=== PATIENT | female | born 1965 | race Caucasian/White ===

== ENCOUNTER → 2016-10-20 | Outpatient (CLI) | payer OTHER ==
[~2016-10-20] MED LIST: EST.625T; HYDR-34 PO; HYDR1CAP2; PNT40TEC; TOPI50TA20
[2016-10-20 07:38] LABS: ALANINE AMINOTRANSFERASE 30 U/L (0-55); ALBUMIN 3.8 G/DL (3.2-4.5); ANION GAP 8 MMOL/L (5-14); ASPARTATE AMINO TRANSFERASE 18 U/L (5-34); BILIRUBIN,TOTAL 0.7 MG/DL (0.1-1.0); BLOOD UREA NITROGEN 13 MG/DL (7-18); BUN/CREATININE RATIO 15; CALCIUM 9.1 MG/DL (8.5-10.1); CARBON DIOXIDE 27 MMOL/L (21-32); CHLORIDE 107 MMOL/L (98-107); CHOLESTEROL 184 MG/DL (< 200); CREATININE SERUM 0.87 MG/DL (0.60-1.30); DIRECT LDL 93 MG/DL (1-129); GFR ESTIMATED > 60; GLUCOSE 99 MG/DL (70-105); POTASSIUM 3.7 MMOL/L (3.6-5.0); SODIUM 142 MMOL/L (135-145); TOTAL PROTEIN 6.1 G/DL (6.4-8.2); TRIGLYCERIDES 52 MG/DL (<150); VLDL CHOLESTEROL 10 MG/DL (5-40)
--- NOTE | 2016-10-21 15:09 | ECHOCARDIOGRAPHY REPORT ---
PROCEDURE PHYSICIAN: JIM MEYER DATE OF PROCEDURE: 10/20/2016 TWO DIMENSIONAL ECHOCARDIOGRAM REPORT PRIMARY PHYSICIAN: OTHER PHYSICIAN: REFERRING PHYSICIAN: Dr. Eric ORDERING PHYSICIAN: INDICATION FOR THE PROCEDURE: Palpitations, family history of heart disease. MEASUREMENTS DERIVED VALUES LV DIAMETER (LAX) NORMALS NORMALS Diastolic 3.8 (3.6-5.2) Eject. Fract. 60% (60%+/-6%) Systolic (2.3-3.9) Diastolic Vol. % Shortening (0.22-0.42) Systolic Vol. Aortic Root IVS THICKNESS Diastolic 0.8 (0.6-1.1) LVPW THICKNESS Diastolic 0.8 (0.6-1.1) LA DIAMETER Systolic 3.3 (2.1-3.7) FINDINGS: 1. Technical quality is good. 2. The left ventricle is normal in size with normal contractility. Systolic function appeared to be normal. Estimated ejection fraction 60%. 3. The left atrium is normal in size. No clot or thrombus were seen within the left atrium. 4. The right atrium and right ventricle are normal in size. No clot or thrombus were seen within the right side. 5. Mitral valve is normal in morphology with mild mitral regurgitation noted by color Doppler flow. No mitral valve prolapse. No mitral valve stenosis. 6. Aortic valve is trileaflet with normal opening and closing pattern. No significant aortic stenosis or regurgitation was seen. 7. Tricuspid valve is normal in morphology with mild tricuspid regurgitation noted by color Doppler flow. Doppler across tricuspid valve estimated pulmonary artery pressure of 20+ right atrial pressure. 8. Pulmonic valve is functioning normally. 9. No pericardial effusion. CONCLUSION: 1. Normal left ventricular size and systolic function. Estimated ejection fraction 60%. 2. Mild mitral and tricuspid regurgitation. 3. Estimated pulmonary artery pressure of 25 to 30 mmHg. Job ID: [id number] Dictated Date: 10/21/2016 14:29:02 [employer] Producer Date: 10/21/2016 15:04:45 / edmond
== END ==
LOC: CARD 07:07
PROVIDERS: ATTEND Physician Assistant
DX: R53.83 Other fatigue (principal); R00.2 Palpitations; Z83.3 Family history of diabetes mellitus; Z82.49 Family history of ischemic heart disease and other diseases of the circulatory system
CPT/HCPCS: 36415; 80053; 80061; 93306

== ENCOUNTER → 2016-10-21 | Outpatient (CLI) | payer OTHER | LOC: CARD 07:16 | PROVIDERS: ATTEND Physician Assistant | DX: R00.2 Palpitations (principal); R53.83 Other fatigue; Z83.3 Family history of diabetes mellitus; Z82.49 Family history of ischemic heart disease and other diseases of the circulatory system | CPT/HCPCS: 93017 ==

== ENCOUNTER → 2016-12-15 | Outpatient (CLI) | payer OTHER ==
--- NOTE | 2016-12-15 18:46 | Diagnostic Imaging Report ---
PROCEDURE: MR imaging of the brain without contrast. TECHNIQUE: Multiplanar, multisequence MR imaging of the brain was performed without contrast. INDICATION: Migraines. Double vision. History of retinal hemorrhage. COMPARISON: None. FINDINGS: There are moderate areas of scattered and confluent T2/FLAIR bright signal within the periventricular and subcortical deep white matter. There is no acute infarct on today's exam. There is no mass effect or midline shift. Ventricles and cortical sulci are age-appropriate. There is no evidence of intra-axial or extra-axial intracranial hemorrhage. No other extra-axial masses or fluid collections are seen. Midline craniocervical anatomy is maintained. Major expected intracranial flow voids are identified. No focal calvarial lesions are seen. Included portions of paranasal sinuses and mastoid air cells are clear. IMPRESSION: 1. Moderate abnormal scattered and confluent T2/FLAIR bright signal within the periventricular and subcortical deep white matter. Chronic small vessel ischemic changes are favored. Overall burden of disease is greater than expected given patient's age. Correlation for risk factors is recommended. Demyelinating process such as multiple sclerosis is not excluded, but felt to be less likely. If there is clinical concern for potential demyelinating process, correlation with CSF flow studies is recommended. 2. No evidence of acute infarct, mass, nor hemorrhage. Dictated by: Dictated on workstation # [id number]
== END ==
LOC: RAD 17:45
PROVIDERS: ATTEND Psychiatry & Neurology Neurology
DX: R94.02 Abnormal brain scan (principal); G43.709 Chronic migraine without aura, not intractable, without status migrainosus; H53.2 Diplopia
CPT/HCPCS: 70551

== ENCOUNTER → 2016-12-17 | Outpatient (CLI) | payer OTHER ==
[2016-12-17 16:17] LABS: PEP REPORT SEE PATH REPORT
[2016-12-17 16:19] LABS: BASOPHILS % (AUTO) 0 % (0-10); EOSINOPHILS # (AUTO) 0.1 10^3/uL (0.0-0.3); EOSINOPHILS % (AUTO) 1 % (0-10); LYMPHOCYTES % (AUTO) 24 % (12-44); MEAN CORPUSCULAR HEMOGLOBIN 29 PG (25-34); MEAN CORPUSCULAR HGB CONC 34 G/DL (32-36); MEAN CORPUSCULAR VOLUME 86 FL (80-99); MEAN PLATELET VOLUME 9.6 FL (7.4-10.4); MONOCYTES # (AUTO) 0.5 X 10^3 (0.0-1.0); MONOCYTES % (AUTO) 6 % (0-12); NEUTROPHILS # (AUTO) 5.6 X 10^3 (1.8-7.8); NEUTROPHILS % (AUTO) 68 % (42-75); PLATELET COUNT 286 10^3/uL (130-400); RED BLOOD COUNT 4.88 10^6/uL (4.35-5.85); RED CELL DISTRIBUTION WIDTH 12.7 % (10.0-14.5); WHITE BLOOD COUNT 8.2 10^3/uL (4.3-11.0)
[2016-12-17 16:36] LABS: ERYTHROCYTE SEDIMENTATION RATE 10 MM/HR (0-30)
[2016-12-19 06:16] LABS: LIGHT CHAIN KAPPA SERUM QUANT 13.76 mg/L (3.30-19.40); LIGHT CHAIN LAMBDA SERUM QUANT 11.52 mg/L (5.71-26.30)
== END ==
LOC: LAB 16:02
PROVIDERS: ATTEND Family Medicine
DX: H35.072 Retinal telangiectasis, left eye (principal); H43.813 Vitreous degeneration, bilateral; H25.13 Age-related nuclear cataract, bilateral; H34.8320 Tributary (branch) retinal vein occlusion, left eye, with macular edema
CPT/HCPCS: 36415; 83883; 84155; 84165; 85025; 85652; 86038; 86141

== ENCOUNTER → 2017-01-01 | Outpatient (CLI) | payer OTHER ==
--- NOTE | 2017-01-01 12:59 | Diagnostic Imaging Report ---
INDICATION: Pain of fifth digit. COMPARISON: None available. TECHNIQUE: 3 views of the left small finger. FINDINGS: There is no acute fracture or traumatic malalignment. Joint spaces are maintained. No radiopaque foreign body or discrete soft tissue swelling. IMPRESSION: 1. No acute fracture or traumatic malalignment of the left small finger. Dictated by: Dictated on workstation # [id number]
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
== END ==
LOC: RAD 11:56
PROVIDERS: ATTEND Nurse Practitioner Family
DX: M47.812 Spondylosis without myelopathy or radiculopathy, cervical region (principal); M51.37 Other intervertebral disc degeneration, lumbosacral region; S69.92XA Unspecified injury of left wrist, hand and finger(s), initial encounter; M54.6 Pain in thoracic spine; V49.9XXA Car occupant (driver) (passenger) injured in unspecified traffic accident, initial encounter; Y92.410 Unspecified street and highway as the place of occurrence of the external cause; Y99.8 Other external cause status
CPT/HCPCS: 72040; 72072; 72100; 73140

== ENCOUNTER 2017-02-04 01:12 | Emergency (ER) | payer OTHER ==
[~2017-02-04] VITALS: Ht 162.6 cm; Wt 68.5 kg
[2017-02-04] MEDS ORDERED: PROMETHAZINE INJ 25 MG/ML (PHENERGAN) AMP ONE (01:20)
[2017-02-04] MEDS ORDERED: KETOROLAC 30 MG/ML VIAL ONE (01:20)
[2017-02-04] MEDS ORDERED: NS IV 1000 ML 1,000 ML ONE (01:20)
[2017-02-04] MEDS ORDERED: diphenhydrAMINE 50 MG/ML INJ (BENADRYL) ONE (01:20)
[2017-02-04] MEDS ORDERED: diphenhydrAMINE 50 MG/ML INJ (BENADRYL) IV STA (01:22)
[2017-02-04] MEDS ORDERED: KETOROLAC 30 MG/ML VIAL IVP STA (01:22)
[2017-02-04] MEDS ORDERED: PROMETHAZINE INJ 25 MG/ML (PHENERGAN) AMP IVP STA (01:22)
[2017-02-04] MEDS ORDERED: NS IV 1000 ML 1,000 ML IV ONE (01:22)
--- NOTE | 2017-02-04 01:38 | ED Headache ---
General Chief Complaint: Head/Cervical Problems Stated Complaint: MIGRAINE Nursing Triage Note: pt to er with c/o migraine. she was seen at [facility] on wednesday for similar c/o. Nursing Sepsis Screen: No Definite Risk Source: patient Exam Limitations: no limitations History of Present Illness Time seen by provider: 01:15 Initial Comments Here with report of migraine headache. She's had a few in the last several days. She is on medicines and they are not currently helping. Headache is posterior. She does have photophobia and sensitivity to sound. Reports nausea. Migraine is typical for her. Denies fever or chills. Timing/Duration: 4-6 hours Severity/Quality: moderate, severe Location: occipital Prior Headaches/Recent Trauma: occasional headaches Modifying Factors: worse with exposure to light Associated Symptoms: No confusion, No fever/chills, nausea/vomiting, No sinus infection, No stiff neck, No vision changes Allergies and Home Medications Allergies Coded Allergies: venlafaxine (Unverified Allergy, Mild, 06/17/09) butorphanol (Verified Allergy, Unknown, 06/28/08) Home Medications Aspirin 81 Mg Tablet.dr, 81 MG PO DAILY, (Reported) Ergocalciferol (Vitamin D2) 50,000 Unit Capsule, #4 (Reported) Hydrocodone/Acetaminophen 1 Each Tablet, #30 (Reported) Tramadol HCl 50 Mg Tablet, #60 (Reported) Venlafaxine HCl 75 Mg Cap.er.24h, 75 MG PO DAILY, #30 (Reported) [octreotide injection] , (Reported) [vitamin b12] , (Reported) Constitutional: No chills, No fever Eyes: See HPI, Denies Decreased Acuity, Photophobia Respiratory: no symptoms reported Cardiovascular: no symptoms reported Gastrointestinal: see HPI, nausea, No vomiting Genitourinary: no symptoms reported Musculoskeletal: no symptoms reported All Other Systems Reviewed Negative Unless Noted: Yes Past Pebviiq-Ydhwpj-Cauqku Hx Patient Social History Alcohol Use: Occasionally Uses Recreational Drug Use: No Smoking Status: Never a Smoker Recent Foreign Travel: No Contact w/Someone Who Travel: No Recent Infectious Disease Expo: No Recent Hopitalizations: No Seasonal Allergies Seasonal Allergies: No Surgeries Surgeries: Appendectomy, Gallbladder, Hysterectomy Respiratory Hx Respiratory Disorders: No Cardiovascular Hx Cardiac Disorders: No Neurological Hx Neurological Disorders: Yes Neurological Disorders: Headaches /Migraines Reproductive System Hx Reproductive Disorders: No Sexually Transmitted Disease: No Genitourinary Hx Genitourinary Disorders: No Gastrointestinal Hx Gastrointestinal Disorders: Yes Musculoskeletal Hx Musculoskeletal Disorders: No Endocrine Hx Endocrine Disorders: No HEENT HX ENT Disorders: No Psychosocial Hx Psychiatric Problems: No Blood Transfusions Hx Blood Disorders: No Reviewed Nursing Assessment Reviewed/Agree w Nursing PMH: Yes Family Medical History Significant Family History: No Pertinent Family Hx Physical Exam Vital Signs Vital Sign - Last 12Hours 02/04/17 01:19 Temp 98.3 Pulse 86 Resp 16 B/P (MAP) 181/115 Capillary Refill : Less Than 3 Seconds General Appearance: WD/WN, mild distress (headache) HEENT: PERRL/EOMI, pharynx normal Neck: full range of motion, supple Cardiovascular: regular rate, rhythm, no murmur Respiratory: lungs clear, normal breath sounds Gastrointestinal: non tender, soft Back: normal inspection, no CVA tenderness, no vertebral tenderness Extremities: non-tender, normal inspection Psychiatric: alert, oriented x 3 Crainal Nerves: normal hearing, normal speech, PERRL Coordination/Gait: normal gait Motor/Sensory: no motor deficit Skin: normal color, warm/dry Progress/Results/Core Measures Results/Orders My Orders Orders - RUPERTO ELLIS MD Saline Lock/Iv-Start (02/04/17 01:22) Ns Iv 1000 Ml (Sodium Chloride 0.9%) (02/04/17 01:22) Promethazine Injection (Phenergan Injec (02/04/17 01:22) Diphenhydramine Injection (Benadryl Inje (02/04/17 01:22) Ketorolac Injection (Toradol Injection) (02/04/17 01:22) Diphenhydramine Injection (Benadryl Inje (02/04/17 01:20) Promethazine Injection (Phenergan Injec (02/04/17 01:20) Ketorolac Injection (Toradol Injection) (02/04/17 01:20) Ns Iv 1000 Ml (Sodium Chloride 0.9%) (02/04/17 01:20) Medications Given in ED Current Medications Medications Dose Ordered Sig/[place] Route Start Time Stop Time Status Last Admin Dose Admin Sodium Chloride 1,000 ml @ 0 mls/hr Q0M ONCE IV 02/04/17 01:22 02/04/17 01:24 DC 7/20/17 01:36 1,000 MLS/HR Vital Signs/I&O Vital Sign - Last 12Hours 02/04/17 01:19 Temp 98.3 Pulse 86 Resp 16 B/P (MAP) 181/115 Blood Pressure Mean: 137 Progress Note : Progress Note Seen and evaluated. IV, normal saline 1 L bolus, Toradol 30 mg IV, Benadryl 50 mg IV and Phenergan 25 mg IV ordered. Monitor patient. 0405: Patient is much better. Tolerating meds okay. Discharged home with return precautions. Patient verbalize understanding instructions and agreement with plan. Departure Impression Impression: Primary Impression: Migraine Qualified Codes: G43.C0 - Periodic headache syndromes in child or adult, not intractable Disposition: HOME, SELF-CARE Condition: Improved Departure-Patient Inst. Decision time for Depature: 04:06 Referrals: JEZ MOHAN DO (PCP/Family) Primary Care Physician Patient Instructions: Migraine Headache (DC) Add. Discharge Instructions: All discharge instructions reviewed with patient and/or family. Voiced understanding. Continue home medications as directed. Follow-up with her in one to 2 days for recheck. Return for worse pain, fever, vomiting, weakness, breathing problems or other concerns as needed. RUPERTO ELLIS MD Feb 04, 2017 01:38
[2017-02-04] MEDS ORDERED: HYDR-3812 (01:42)
[2017-02-04] MEDS ORDERED: OCTREOTIDE (01:42)
[2017-02-04] MEDS ORDERED: VENL75CA93 PO (01:42)
[2017-02-04] MEDS ORDERED: ASPI-586 PO (01:42)
[2017-02-04] MEDS ORDERED: TRAM50TA2 (01:42)
[2017-02-04] MEDS ORDERED: ERGO50006 (01:42)
[2017-02-04] MEDS ORDERED: vitamin b12 (01:42)
[2017-02-04 04:30] VITALS: BP 160/107
== END 2017-02-04 04:30 | disposition home or self-care (01) ==
LOC: EDUNIT# 01:12 → ER 01:13
DX: G43.909 Migraine, unspecified, not intractable, without status migrainosus (principal); Z90.49 Acquired absence of other specified parts of digestive tract; Z90.710 Acquired absence of both cervix and uterus; Z79.82 Long term (current) use of aspirin
CPT/HCPCS: 96361; 96374; 96375

== ENCOUNTER → 2017-02-17 | Outpatient (CLI) | payer OTHER ==
[~2017-02-17] MED LIST changes: +ASPI-586 PO; +ERGO50006; +HYDR-3812; +OCTREOTIDE; +TRAM50TA2; +VENL75CA93 PO; +vitamin b12
--- NOTE | 2017-02-17 17:58 | Diagnostic Imaging Report ---
PROCEDURE: MRI right joint lower extremity without contrast. TECHNIQUE: Multiplanar, multisequence non contrast-enhanced MRI of the right lower extremity was accomplished. INDICATION: Right knee pain. Patient felt a pop in the knee while running. FINDINGS: There is a small joint effusion. The extensor mechanism appears intact. The ACL and the PCL are both intact. There is a tear involving the apex of the medial meniscus in the posterior horn. The body and the anterior horns appear intact. There is no lateral meniscus tear. The lateral collateral ligament complex is intact. The MCL is intact. There is no popliteal cyst. The muscles around the knee demonstrate normal signal and bulk. There is mild cartilage thinning in the medial compartment. The cartilage in the patellofemoral and lateral compartments appears intact. There is mild edema anterior to the patella may relate to mild prepatellar bursitis. The bone marrow demonstrates normal signal with no contusion or other abnormality seen. IMPRESSION: There is a radial tear involving the apex of the posterior horn of the medial meniscus. Other findings as above. Dictated by: Dictated on workstation # [id number]
== END ==
LOC: RAD 11:38
PROVIDERS: ATTEND Family Medicine
DX: S83.241A Other tear of medial meniscus, current injury, right knee, initial encounter (principal); X58.XXXA Exposure to other specified factors, initial encounter; Y99.8 Other external cause status
CPT/HCPCS: 73721

== ENCOUNTER 2017-02-18 15:01 | Outpatient (RCR) | payer OTHER | END 2017-02-18 16:22 | disposition home or self-care (01) | PROVIDERS: ATTEND Physician Assistant | DX: M23.8X1 Other internal derangements of right knee (principal) ==

== ENCOUNTER 2017-03-30 13:03 | Outpatient (RCR) | payer OTHER | END 2017-04-13 09:46 | disposition home or self-care (01) | PROVIDERS: ATTEND Physician Assistant Medical | DX: M25.561 Pain in right knee (principal) ==

== ENCOUNTER → 2017-04-02 | Outpatient (CLI) | payer OTHER ==
[~2017-04-02] VITALS: Ht 162.6 cm; Wt 68.5 kg
[2017-04-02 12:00] VITALS: BP 174/94
[2017-04-02] MEDS: NS IV 1000 ML 1,000 ML IV SCH ×2 (12:00→13:59)
[2017-04-02 12:03] LABS: MEAN PLATELET VOLUME 9.3 FL (7.4-10.4); RED BLOOD COUNT 4.69 10^6/uL (4.35-5.85); RED CELL DISTRIBUTION WIDTH 12.6 % (10.0-14.5); WHITE BLOOD COUNT 8.8 10^3/uL (4.3-11.0)
[2017-04-02 12:20] LABS: ALANINE AMINOTRANSFERASE 30 U/L (0-55); ALBUMIN 4.2 GM/DL (3.2-4.5); ANION GAP 9 MMOL/L (5-14); ASPARTATE AMINO TRANSFERASE 22 U/L (5-34); BILIRUBIN,TOTAL 0.7 MG/DL (0.1-1.0); BLOOD UREA NITROGEN 7 MG/DL (7-18); BUN/CREATININE RATIO 10; CALCIUM 9.3 MG/DL (8.5-10.1); CARBON DIOXIDE 27 MMOL/L (21-32); CHLORIDE 105 MMOL/L (98-107); CREATININE SERUM 0.73 MG/DL (0.60-1.30); GFR ESTIMATED > 60; GLUCOSE 106 MG/DL (70-105); POTASSIUM 3.6 MMOL/L (3.6-5.0); SODIUM 141 MMOL/L (135-145); TOTAL PROTEIN 6.8 GM/DL (6.4-8.2)
[2017-04-02 12:41] LABS: THYROID STIMULATING HORMONE 1.24 UIU/ML (0.35-4.94)
[2017-04-02 15:45] VITALS: BP 174/94
== END ==
LOC: CARD 11:21
PROVIDERS: ATTEND Nurse Practitioner Family
DX: I10 Essential (primary) hypertension (principal); R53.83 Other fatigue; R11.0 Nausea; R00.2 Palpitations
CPT/HCPCS: 36415; 80053; 84439; 84443; 85027; 93005

== ENCOUNTER → 2017-04-19 | Outpatient (CLI) | payer OTHER ==
--- NOTE | 2017-04-20 10:58 | Diagnostic Imaging Report ---
EXAMINATION: Bilateral screening mammogram 2D views with tomosynthesis. The current study was also evaluated with a Computer Aided Detection (CAD) system. INDICATION: Screening. PERSONAL HISTORY: No current complaints stated on the questionnaire. COMPARISON: 04/13/2016. FINDINGS: The breasts are composed of heterogeneously dense parenchyma which may decrease mammographic sensitivity. Benign-appearing calcifications are seen. Allowing for technique and positional differences, no suspicious change is seen. IMPRESSION: Dense breasts with no definite change. ACR BI-RADS Category 2: Benign findings. Result letter will be mailed to the patient. Note: At least 10% of breast cancer is not imaged by mammography. Dictated by: Dictated on workstation # [id number]
== END ==
LOC: RAD 07:16
PROVIDERS: ATTEND Family Medicine
DX: Z12.31 Encounter for screening mammogram for malignant neoplasm of breast (principal)
CPT/HCPCS: 77067

== ENCOUNTER → 2017-08-15 | Outpatient (CLI) | payer OTHER ==
[~2017-08-15] MED LIST changes: +ACHD5005; -HYDR-3812
== END ==
LOC: LAB 17:28
PROVIDERS: ATTEND Family Medicine
DX: R50.9 Fever, unspecified (principal); R05 Cough; R53.81 Other malaise
CPT/HCPCS: 87804

== ENCOUNTER → 2018-02-07 | Outpatient (CLI) | payer OTHER ==
[2018-02-07 07:40] LABS: ALANINE AMINOTRANSFERASE 9 U/L (0-55); ALBUMIN 3.9 GM/DL (3.2-4.5); ALKALINE PHOSPHATASE 66 U/L (40-136); BILIRUBIN,TOTAL 0.6 MG/DL (0.1-1.0); BUN/CREATININE RATIO 19; CALCIUM 9.1 MG/DL (8.5-10.1); CARBON DIOXIDE 25 MMOL/L (21-32); CHLORIDE 110 MMOL/L (98-107); CREATINE KINASE 57 U/L (29-168); CREATININE SERUM 0.75 MG/DL (0.60-1.30); GFR ESTIMATED > 60; GLUCOSE 102 MG/DL (70-105); POTASSIUM 3.9 MMOL/L (3.6-5.0); SODIUM 142 MMOL/L (135-145); TOTAL PROTEIN 6.2 GM/DL (6.4-8.2)
== END ==
LOC: LAB 07:06
PROVIDERS: ATTEND Family Medicine
DX: R07.9 Chest pain, unspecified (principal)
CPT/HCPCS: 36415; 80053; 82550; 84484

== ENCOUNTER → 2018-03-07 | Outpatient (CLI) | payer OTHER ==
--- NOTE | 2018-03-07 16:25 | Diagnostic Imaging Report ---
PROCEDURE: MRI right joint lower extremity without contrast. TECHNIQUE: Multiplanar, multisequence MR imaging of the right knee was performed without contrast. COMPARISON: Right knee MRI of 02/17/2017. INDICATION: Right knee pain. FINDINGS: MENISCI Medial meniscus: Minimal truncation of the free edge of the posterior horn of the medial meniscus may relate to partial meniscectomy versus degenerative free-edge tearing. This corresponds to area of previously noted radial free-edge tearing. Minimal irregularity of the superior articular surface of the posterior horn of the medial meniscus is now noted. The body of the medial meniscus is partially extruded into the medial gutter, which is a new finding since prior exam. Lateral meniscus: Normal. LIGAMENTS ACL: Intact. PCL: Intact. MCL: Intact. LCL: The lateral collateral ligamentous complex is intact. EXTENSOR MECHANISM The extensor mechanism is intact. CARTILAGE Medial compartment: Broad area of high-grade partial thickness articular cartilage loss is present in the weightbearing aspect of the medial compartment, which is mildly progressed since prior exam. Lateral compartment: The lateral compartment articular cartilage is preserved without high-grade chondromalacia. Patellofemoral compartment: Partial-thickness chondral fibrillation and fissuring in the patella articular cartilage, greatest at the apex. BONE No fracture, stress fracture or osteonecrosis. SOFT TISSUE No knee effusion or Leiva's cyst. IMPRESSION: 1. Increasing degenerative free edge and superior articular surface tearing in the posterior horn of the medial meniscus. The body of the medial meniscus is now partially extruded into the gutter. 2. Progressive degenerative articular cartilage loss throughout the medial compartment now with a broad area of high-grade partial-thickness loss. Dictated by: Dictated on workstation # [id number]
== END ==
LOC: RAD 02-23 16:22
PROVIDERS: ATTEND Nurse Practitioner Family
DX: M23.321 Other meniscus derangements, posterior horn of medial meniscus, right knee (principal); M24.174 Other articular cartilage disorders, right foot
CPT/HCPCS: 73721

== ENCOUNTER 2018-03-15 15:32 | Outpatient (RCR) | payer OTHER | END 2018-03-15 16:39 | disposition home or self-care (01) | PROVIDERS: ATTEND Physician Assistant Medical | DX: M23.8X1 Other internal derangements of right knee (principal) ==

== ENCOUNTER 2018-04-13 08:07 | Outpatient (RCR) | payer OTHER | END 2018-04-17 | disposition home or self-care (01) | PROVIDERS: ATTEND Physician Assistant Medical | DX: Z47.89 Encounter for other orthopedic aftercare (principal); M25.561 Pain in right knee ==

== ENCOUNTER 2018-04-22 09:17 | Outpatient (RCR) | payer OTHER | END 2018-05-10 09:23 | disposition home or self-care (01) | PROVIDERS: ATTEND Physician Assistant Medical | DX: Z47.89 Encounter for other orthopedic aftercare (principal); M25.561 Pain in right knee ==

== ENCOUNTER → 2018-05-13 | Outpatient (CLI) | payer OTHER ==
--- NOTE | 2018-05-13 13:46 | Diagnostic Imaging Report ---
INDICATION: Routine screening. TIME OF EXAM: 04/19/2017, 04/13/2016. 2-D and 3-D bilateral screening mammography was performed with CAD. The current study was also evaluated with a Computer Aided Detection (CAD) system. FINDINGS: Both breasts are heterogeneously dense, limiting the sensitivity of mammography. The parenchymal pattern is stable. No mass or malignant-appearing microcalcifications are seen. There are benign calcifications on the left. The axillae are unremarkable. IMPRESSION: No mammographic features suspicious for malignancy are identified. ACR BI-RADS Category 2: Benign findings. Result letter will be mailed to the patient. Note: At least 10% of breast cancer is not imaged by mammography. Dictated by: Dictated on workstation # [id number]
== END ==
LOC: RAD 11:02
PROVIDERS: ATTEND Family Medicine
DX: Z12.31 Encounter for screening mammogram for malignant neoplasm of breast (principal)
CPT/HCPCS: 77067

== ENCOUNTER → 2018-05-19 | Outpatient (CLI) | payer OTHER ==
[2018-05-19 14:27] LABS: BASOPHILS % (AUTO) 0 % (0-10); EOSINOPHILS % (AUTO) 1 % (0-10); HEMATOCRIT 39 % (35-52); LYMPHOCYTES # (AUTO) 1.4 X 10^3 (1.0-4.0); LYMPHOCYTES % (AUTO) 23 % (12-44); MEAN CORPUSCULAR HEMOGLOBIN 28 PG (25-34); MEAN CORPUSCULAR HGB CONC 34 G/DL (32-36); MEAN CORPUSCULAR VOLUME 83 FL (80-99); MONOCYTES # (AUTO) 0.5 X 10^3 (0.0-1.0); MONOCYTES % (AUTO) 8 % (0-12); NEUTROPHILS # (AUTO) 4.4 X 10^3 (1.8-7.8); NEUTROPHILS % (AUTO) 69 % (42-75); PLATELET COUNT 321 10^3/uL (130-400); RED BLOOD COUNT 4.63 10^6/uL (4.35-5.85); RED CELL DISTRIBUTION WIDTH 12.7 % (10.0-14.5); WHITE BLOOD COUNT 6.3 10^3/uL (4.3-11.0)
[2018-05-19 14:47] LABS: BAND NEUTROPHILS 3 %; BASOPHILS % (MANUAL) 0 %; EOSINOPHILS % (MANUAL) 0 %; LYMPHOCYTES % (MANUAL) 27 %; MONOCYTES % (MANUAL) 4 %; NEUTROPHILS % (MANUAL) 66 %; RBC MORPH NORMAL
== END ==
LOC: LAB 14:03
PROVIDERS: ATTEND Nurse Practitioner Family
DX: R53.83 Other fatigue (principal)
CPT/HCPCS: 36415; 82728; 83540; 85007; 85027

== ENCOUNTER → 2018-06-15 | Outpatient (CLI) | payer OTHER ==
[2018-06-15 09:11] LABS: ALANINE AMINOTRANSFERASE 13 U/L (0-55); ALKALINE PHOSPHATASE 69 U/L (40-136); BILIRUBIN,TOTAL 0.6 MG/DL (0.1-1.0); BUN/CREATININE RATIO 11; CALCIUM 9.1 MG/DL (8.5-10.1); CARBON DIOXIDE 23 MMOL/L (21-32); CHLORIDE 106 MMOL/L (98-107); GFR ESTIMATED > 60; GLUCOSE 98 MG/DL (70-105); POTASSIUM 3.7 MMOL/L (3.6-5.0); SODIUM 139 MMOL/L (135-145); TOTAL PROTEIN 6.8 GM/DL (6.4-8.2)
== END ==
LOC: RAD 08:39
PROVIDERS: ATTEND Family Medicine
DX: R60.0 Localized edema (principal)
CPT/HCPCS: 36415; 80053

== ENCOUNTER → 2018-07-05 | Outpatient (CLI) | payer OTHER ==
[2018-07-05 08:09] LABS: ALANINE AMINOTRANSFERASE 16 U/L (0-55); ALBUMIN 4.2 GM/DL (3.2-4.5); ALKALINE PHOSPHATASE 86 U/L (40-136); BILIRUBIN,TOTAL 0.7 MG/DL (0.1-1.0); BUN/CREATININE RATIO 8; CALCIUM 9.3 MG/DL (8.5-10.1); CARBON DIOXIDE 24 MMOL/L (21-32); CHLORIDE 106 MMOL/L (98-107); CHOLESTEROL 196 MG/DL (< 200); CREATININE SERUM 0.86 MG/DL (0.60-1.30); GFR ESTIMATED > 60; GLUCOSE 112 MG/DL (70-105); HDL CHOLESTEROL 57 MG/DL (40-60); POTASSIUM 3.7 MMOL/L (3.6-5.0); SODIUM 140 MMOL/L (135-145); TRIGLYCERIDES 116 MG/DL (<150); VLDL CHOLESTEROL 23 MG/DL (5-40)
== END ==
LOC: LAB 07:33
PROVIDERS: ATTEND Physician Assistant
DX: I10 Essential (primary) hypertension (principal); R60.9 Edema, unspecified; R53.83 Other fatigue; G43.909 Migraine, unspecified, not intractable, without status migrainosus; Z82.49 Family history of ischemic heart disease and other diseases of the circulatory system
CPT/HCPCS: 36415; 80053; 80061; 84443

== ENCOUNTER → 2018-11-23 | Outpatient (CLI) | payer OTHER ==
--- NOTE | 2018-11-23 15:52 | Diagnostic Imaging Report ---
PROCEDURE: MRI lumbar spine. TECHNIQUE: Multiplanar, multisequence MRI of the lumbar spine was performed without contrast. INDICATION: Low back pain and left hip pain. COMPARISON: No prior studies are available for comparison. FINDINGS: Curvature of the lumbar spine is normal. There is minimal retrolisthesis of L5 on S1. Vertebral body heights are maintained. Marrow signal intensity is unremarkable. No geographic marrow lesion or acute compression fracture is seen. There is some desiccation at L4-5 but disc space is maintained. There is significant degenerative disc disease at L5-S1 with disc space narrowing and desiccation with reactive changes in the adjacent endplates. The conus is unremarkable at the L1 level. T12-L1: Central canal and neural foramina are widely patent. L1-2: Central canal and neural foramina are widely patent. L2-3: Central canal and neural foramina are widely patent. L3-4: The central canal and neural foramina are widely patent. L4-5: Central canal and neural foramina are widely patent. L5-S1: Central canal is patent. Endplate osteophytes do produce mild to moderate narrowing of the neural foramina bilaterally. There is some narrowing of the lateral recesses bilaterally. Paraspinous tissues are unremarkable. IMPRESSION: L5-S1 degenerative disc disease with mild to moderate bilateral neural foraminal and lateral recess stenosis. No central canal stenosis is identified. Dictated by: Dictated on workstation # [id number]
== END ==
LOC: RAD 15:13
PROVIDERS: ATTEND Neurological Surgery
DX: M51.37 Other intervertebral disc degeneration, lumbosacral region (principal); M48.061 Spinal stenosis, lumbar region without neurogenic claudication
CPT/HCPCS: 72148

== ENCOUNTER → 2018-12-27 | Outpatient (CLI) | payer OTHER ==
--- NOTE | 2018-12-27 12:20 | Diagnostic Imaging Report ---
INDICATION: Left knee sprain. COMPARISON: None available TECHNIQUE: Three radiographs of the left knee dated 12/27/2018. FINDINGS: No acute fracture or dislocation. No destructive osseous process. Minimal medial joint space narrowing. The patella is well seated within the trochlea. Tiny knee joint effusion. IMPRESSION: No acute osseous abnormality with minimal degenerative changes and a tiny knee joint effusion. Dictated by: Dictated on workstation # [id number]
== END ==
LOC: ORTHO 09:25
PROVIDERS: ATTEND Orthopaedic Surgery
DX: S83.412A Sprain of medial collateral ligament of left knee, initial encounter (principal); X58.XXXA Exposure to other specified factors, initial encounter
CPT/HCPCS: 73562; 99203

== ENCOUNTER → 2019-01-05 | Outpatient (CLI) | payer OTHER ==
--- NOTE | 2019-01-05 09:26 | Diagnostic Imaging Report ---
MRI LT LOWER EXT JOINT W/O TECHNIQUE: Multiplanar, multisequence MR imaging of the left knee was performed without contrast. COMPARISON: Left knee radiographs from 12/27/2018 INDICATION: Left knee pain. FINDINGS: MENISCI Medial meniscus: Degenerative free edge tearing of the posterior horn and body of the medial meniscus. The body of the medial meniscus is partially extruded into the medial gutter although there is no radial tearing of the root insertional fibers. Lateral meniscus: Normal. LIGAMENTS ACL: Intact. PCL: Intact. MCL: Thickening of the proximal MCL with a small amount of increased signal within it is indicative of low to intermediate grade MCL sprain. LCL: The lateral collateral ligamentous complex is intact. EXTENSOR MECHANISM The extensor mechanism is intact. CARTILAGE Medial compartment: Broad area of full-thickness articular cartilage loss throughout the weightbearing aspect of the medial compartment. Lateral compartment: The lateral compartment articular cartilage is preserved without high-grade chondromalacia. Patellofemoral compartment: Multifocal partial-thickness chondromalacia throughout the patella. BONE No fracture, stress fracture or osteonecrosis. SOFT TISSUE Large knee joint effusion. No Leiva's cyst. IMPRESSION: 1. Advanced degenerative changes in the medial compartment include a broad area of full-thickness articular cartilage loss, central weightbearing aspect and degenerative free edge tearing of the medial meniscus. 2. Low to intermediate grade sprain of the MCL. 3. The cruciate ligaments are intact. 4. Large knee joint effusion. Dictated by: Dictated on workstation # [id number]
== END ==
LOC: RAD 07:03
PROVIDERS: ATTEND Orthopaedic Surgery
DX: S83.412A Sprain of medial collateral ligament of left knee, initial encounter (principal); M17.12 Unilateral primary osteoarthritis, left knee; M94.8X8 Other specified disorders of cartilage, other site
CPT/HCPCS: 73721

== ENCOUNTER 2019-02-23 15:16 | Outpatient (RCR) | payer OTHER | END 2019-05-14 | disposition home or self-care (01) | PROVIDERS: ATTEND Physician Assistant Medical | DX: M25.562 Pain in left knee (principal); Z98.890 Other specified postprocedural states ==

== ENCOUNTER → 2019-03-22 | Outpatient (CLI) | payer OTHER ==
[2019-03-22 10:43] LABS: BUN/CREATININE RATIO 12; CALCIUM 9.2 MG/DL (8.5-10.1); CARBON DIOXIDE 31 MMOL/L (21-32); CHLORIDE 104 MMOL/L (98-107); CREATININE SERUM 0.85 MG/DL (0.60-1.30); GFR ESTIMATED > 60; GLUCOSE 91 MG/DL (70-105); SODIUM 140 MMOL/L (135-145)
== END ==
LOC: LAB 10:01
PROVIDERS: ATTEND Family Medicine
DX: E87.6 Hypokalemia (principal)
CPT/HCPCS: 36415; 80048

== ENCOUNTER → 2019-05-19 | Outpatient (CLI) | payer OTHER ==
[~2019-05-19] MED LIST changes: -TRAM50TA2; +TRM50T
--- NOTE | 2019-05-19 09:56 | Diagnostic Imaging Report ---
INDICATION: Routine screening. Comparison is made with prior mammogram from 05/13/2018 and 04/19/2017. 2-D and 3-D bilateral screening mammography was performed with a Computer Aided Detection (CAD) system. 3-D tomosynthesis was also performed and reviewed. FINDINGS: Both breasts are heterogeneously dense, limiting the sensitivity of mammography. There are benign calcifications present. No mass or malignant appearing microcalcifications are seen. Axillae are unremarkable. IMPRESSION: No mammographic features suspicious for malignancy are identified. ACR BI-RADS Category 2: Benign findings. Result letter will be mailed to the patient. Note: At least 10% of breast cancer is not imaged by mammography. Dictated by: Dictated on workstation # [id number]
== END ==
LOC: RAD 09:00
PROVIDERS: ATTEND Family Medicine
DX: Z12.31 Encounter for screening mammogram for malignant neoplasm of breast (principal)
CPT/HCPCS: 77067

== ENCOUNTER → 2019-07-31 | Outpatient (CLI) | payer SELFPAY ==
[2019-07-31 15:44] LABS: ALANINE AMINOTRANSFERASE 13 U/L (0-55); ALBUMIN 4.4 GM/DL (3.2-4.5); ALKALINE PHOSPHATASE 97 U/L (40-136); BILIRUBIN,TOTAL 0.6 MG/DL (0.1-1.0); BUN/CREATININE RATIO 9; CALCIUM 9.4 MG/DL (8.5-10.1); CARBON DIOXIDE 26 MMOL/L (21-32); CHLORIDE 106 MMOL/L (98-107); CREATININE SERUM 0.94 MG/DL (0.60-1.30); GFR ESTIMATED > 60; GLUCOSE 103 MG/DL (70-105); POTASSIUM 3.5 MMOL/L (3.6-5.0); SODIUM 141 MMOL/L (135-145); TOTAL PROTEIN 7.5 GM/DL (6.4-8.2)
== END ==
LOC: LAB 15:00
PROVIDERS: ATTEND Internal Medicine Cardiovascular Disease
DX: G43.909 Migraine, unspecified, not intractable, without status migrainosus (principal); I10 Essential (primary) hypertension; R00.2 Palpitations
CPT/HCPCS: 36415; 80053; 84443